=== PATIENT | male | born 1965 | race Hispanic/Latino ===

== ENCOUNTER 2021-08-03 16:43 | Outpatient (CLI) | payer MEDICARE ==
[2021-08-03 17:41] LABS: Calcium 8.3 mg/dL (8.4-10.2)
== END 2021-08-03 16:44 | disposition home or self-care (01) ==
LOC: LAB 16:43
PROVIDERS: ATTEND Internal Medicine Nephrology
DX: N18.30 Chronic kidney disease, stage 3 unspecified (principal)
CPT/HCPCS: 36415; 80048